=== PATIENT | female | born 1965 | race Caucasian/White ===

== ENCOUNTER 2017-08-25 13:06 | Emergency (ER) | payer OTHER ==
[~2017-08-25] VITALS: Ht 157.5 cm; Wt 67.1 kg
[~2017-08-25 13:06] MED LIST: DIOVAN HCT 1601 EACH
[2017-08-25] MEDS ORDERED: CELEBREX200MG (13:30)
== END 2017-08-25 18:03 | disposition home or self-care (01) ==
LOC: ER 13:06
DX: L03.113 Cellulitis of right upper limb (principal)

== ENCOUNTER 2019-12-09 14:31 | Emergency (ER) | payer OTHER ==
[~2019-12-09] VITALS: Ht 157.5 cm; Wt 68.5 kg
[~2019-12-09 14:31] MED LIST changes: +CELEBREX200MG
== END 2019-12-09 20:18 | disposition home or self-care (01) ==
LOC: ER 14:31
DX: R51 Headache (principal); M54.2 Cervicalgia

== ENCOUNTER 2025-07-12 09:10 | Emergency (ER) | payer OTHER ==
[~2025-07-12] VITALS: Ht 157.5 cm; Wt 50.8 kg
[2025-07-12] MEDS ORDERED: ZETIA10 MG (09:55)
[2025-07-12] MEDS ORDERED: [UNRECOGNIZED DRUG - OTHER] (09:55)
[2025-07-12] MEDS ORDERED: FAMOTIDINE/PF 20 MG/2 ML VIAL IV STA (10:00)
[2025-07-12] MEDS ORDERED: GUAIFENESIN 200 MG/10 ML BLIST.PACK PO ONE ×2 (10:00→10:58)
[2025-07-12] MEDS ORDERED: 0.9 % SODIUM CHLORIDE 1,000 ML IV STA (10:00)
[2025-07-12] MEDS ORDERED: DEXAMETHASONE SODIUM PHOSPHATE 4 MG/ML VIAL IM STA (10:00)
[2025-07-12] MEDS ORDERED: ONDANSETRON HCL 2 MG/ML VIAL IV STA (10:00)
[2025-07-12] MEDS ORDERED: METHYLPREDNISOLONE SOD SUCC 125 MG VIAL IV ONE (10:15)
[2025-07-12] MEDS ORDERED: CETIRIZINE HCL 10 MG TABLET PO ONE (10:15)
[2025-07-12] MEDS ORDERED: ONDANSETRON HCL 2 MG/ML VIAL ONE (10:25)
[2025-07-12] MEDS ORDERED: METHYLPREDNISOLONE SOD SUCC 125 MG VIAL ONE (10:57)
[2025-07-12] MEDS ORDERED: CETIRIZINE HCL 5MG/5ML BLIST.PACK PO ONE (10:58)
[2025-07-12] MEDS ORDERED: FAMOTIDINE/PF 20 MG/2 ML VIAL ONE (10:58)
[2025-07-12 11:09] LABS: BASO % 0.3 % (0.1-1.2); EOS # 0.00 (0.04-0.54); EOS % 0.0 % (0.7-7.0); LYMPH # 1.58 (1.18-3.74); LYMPH % 23.8 % (19.3-53.1); MEAN PLATELET VOLUME 9.60 fl (9.4-12.4); MONO # 0.41 (0.24-0.82); MONO % 6.2 % (4.7-12.5); NEUT # 4.62 (1.56-6.13); NEUT % 69.4 % (34.0-71.1); RED CELL DISTRIBUTION WIDTH 12.4 % (11.6-14.4)
[2025-07-12 11:32] LABS: COVID-19 AG NEGATIVE (NEGATIVE)
[2025-07-12] MEDS ORDERED: DELSYM COUGH+C180 ML PO (12:07)
[2025-07-12] MEDS ORDERED: ALLER-TEC10 MG PO (12:07)
[2025-07-12] MEDS ORDERED: AZITHROMYCIN500 MG PO (12:07)
== END 2025-07-12 12:38 | disposition home or self-care (01) ==
LOC: ER 09:11
PROVIDERS: General Practice
DX: J06.9 Acute upper respiratory infection, unspecified (principal); Z88.8 Allergy status to other drugs, medicaments and biological substances; I10 Essential (primary) hypertension; M19.90 Unspecified osteoarthritis, unspecified site; Z20.822 Contact with and (suspected) exposure to COVID-19

== ENCOUNTER 2025-07-18 07:49 | Emergency (ER) | payer OTHER ==
[~2025-07-18] VITALS: Ht 157.5 cm; Wt 50.8 kg
[~2025-07-18 07:49] MED LIST changes: +ALLER-TEC10 MG PO; +AZITHROMYCIN500 MG PO; +DELSYM COUGH+C180 ML PO; +ZETIA10 MG; +[UNRECOGNIZED DRUG - OTHER]
[2025-07-18 07:52] VITALS: BP 109/78; O2SAT 99
[2025-07-18] MEDS ORDERED: ONDANSETRON HCL 2 MG/ML VIAL ONE (08:55)
[2025-07-18] MEDS ORDERED: FAMOTIDINE/PF 20 MG/2 ML VIAL ONE (08:55)
[2025-07-18] MEDS ORDERED: 0.9 % SODIUM CHLORIDE 1,000 ML IV ONE (09:00)
[2025-07-18] MEDS ORDERED: ONDANSETRON HCL 2 MG/ML VIAL IV ONE (09:00)
[2025-07-18] MEDS ORDERED: FAMOTIDINE/PF 20 MG/2 ML VIAL IV ONE (09:00)
[2025-07-18 09:40] LABS: BASO % 0.1 % (0.1-1.2); EOS # 0.03 (0.04-0.54); EOS % 0.4 % (0.7-7.0); LYMPH # 1.86 (1.18-3.74); LYMPH % 27.8 % (19.3-53.1); MEAN PLATELET VOLUME 9.20 fl (9.4-12.4); MONO # 0.55 (0.24-0.82); MONO % 8.2 % (4.7-12.5); NEUT # 4.23 (1.56-6.13); NEUT % 63.2 % (34.0-71.1); RED CELL DISTRIBUTION WIDTH 12.1 % (11.6-14.4)
[2025-07-18 09:59] LABS: COVID-19 AG NEGATIVE (NEGATIVE)
[2025-07-18 10:25] LABS: ALT/SGPT 65.0 U/L (12-78); AST/SGOT 31.0 U/L (15-37); BILIRUBIN TOTAL 1.33 mg/dL (0.3-1.2); BUN CREA RATIO 29.0 (7.0-25.0); CREATININE SERUM 0.83 mg/dL (0.55-1.02); GFR 70.12; GLOBULINA 3.3 G/DL (2.4-3.5); GLUCOSE FASTING 98.0 mg/dL (65-100); OSMOLALITY SERUM 291.0 MOSM/KG (275-295)
[2025-07-18] MEDS ORDERED: PEPCID AC20 MG PO (14:07)
[2025-07-18] MEDS ORDERED: ZOFRAN8 MG PO (14:07)
== END 2025-07-18 14:16 | disposition home or self-care (01) ==
LOC: ER 07:49
PROVIDERS: Preventive Medicine Public Health & General Preventive Medicine
DX: A08.4 Viral intestinal infection, unspecified (principal); B34.9 Viral infection, unspecified; Z88.8 Allergy status to other drugs, medicaments and biological substances; Z20.822 Contact with and (suspected) exposure to COVID-19